=== PATIENT | female | born 1980 | race Hispanic/Latino ===

== ENCOUNTER 2018-07-04 16:41 | Emergency (ER) | payer BC, OTHER ==
[~2018-07-04 16:41] MED LIST: CELE200C PO; CETI10CA5 PO; MONT10TA24 PO
[2018-07-04] MEDS ORDERED: ONDANSETRON HCL 4 MG/2 ML VIAL ONE (17:14)
[2018-07-04] MEDS ORDERED: KETOROLAC TROMETHAMINE 30MG/ML ONE (17:15)
[2018-07-04 17:23] LABS: EOSINOPHILS % (AUTO) 3.3 % (0.0-8.0); HEMATOCRIT 37.7 % (36-48); LYMPHOCYTES % (AUTO) 29.9 % (21.0-51.0); MEAN CORPUSCULAR HEMOGLOBIN 28.9 pg (27.0-33.0); MEAN CORPUSCULAR HGB CONC 34.3 g/dL (32.0-36.0); MEAN CORPUSCULAR VOLUME 84.2 fL (79-99); MONOCYTES % (AUTO) 11.8 % (3.0-13.0); PLATELET COUNT (AUTO) 385 K/uL (130-400); RED BLOOD CELL COUNT(AUTO) 4.48 MIL/uL (4.00-5.50); RED CELL DISTRIBUTION WIDTH 14.1 % (11.0-15.5); WHITE BLOOD COUNT (AUTO) 8.1 K/uL (4.8-10.8)
[2018-07-04 17:28] LABS: APPEARANCE,URINE Clear (CLEAR); BILIRUBIN,URINE Negative (NEGATIVE); COLOR,URINE Dark Yellow (YELLOW); GLUCOSE, URINE (UA) Negative (NEGATIVE); KETONES,URINE Negative (NEGATIVE); LEUKOCYTE ESTERASE ,URINE Negative (NEGATIVE); NITRATE,URINE Negative (NEGATIVE); OCCULT BLOOD,URINE Negative (NEGATIVE); PH,URINE 6.5 (5.0-8.0); PROTEIN,URINE Negative (NEGATIVE)
[2018-07-04 17:31] LABS: HCG,QUAL RESULT NEGATIVE (NEGATIVE)
[2018-07-04 17:34] LABS: POTASSIUM 3.6 mmol/L (3.5-5.1)
== END 2018-07-04 18:41 | disposition home or self-care (01) ==
LOC: EDH 16:41
DX: N20.1 Calculus of ureter (principal); Z88.1 Allergy status to other antibiotic agents; Z90.49 Acquired absence of other specified parts of digestive tract; Z98.890 Other specified postprocedural states
CPT/HCPCS: 36415; 74176; 80048; 81003; 81025; 85025; 96374; 96375; 99285; J1885; J2405; 96376

== ENCOUNTER 2019-02-15 07:30 | Day surgery (SDC) | payer BC, OTHER ==
[2019-02-12 16:52] VITALS: BP 136/83
[2019-02-12 17:10] LABS: BASOPHILS % (AUTO) 0.6 % (0.0-5.0); EOSINOPHILS % (AUTO) 4.3 % (0.0-8.0); HEMATOCRIT 36.1 % (36-48); LYMPHOCYTES % (AUTO) 29.5 % (21.0-51.0); MEAN CORPUSCULAR HEMOGLOBIN 28.8 pg (27.0-33.0); MEAN CORPUSCULAR HGB CONC 32.1 g/dL (32.0-36.0); MEAN CORPUSCULAR VOLUME 89.6 fL (79-99); MONOCYTES % (AUTO) 9.7 % (3.0-13.0); NEUTROPHILS % (AUTO) 55.6 % (40.0-77.0); PLATELET COUNT (AUTO) 372 K/uL (130-400); RED BLOOD CELL COUNT(AUTO) 4.03 MIL/uL (4.00-5.50); RED CELL DISTRIBUTION WIDTH 13.1 % (11.0-15.5)
[2019-02-15] VITALS (21 sets, daily range): BP systolic 15–140; BP diastolic 42–86
[~2019-02-15] VITALS: Ht 170.2 cm; Wt 98.1 kg
[~2019-02-15 07:30] MED LIST changes: +CALDOLOR 800MG+NS 250ML 250 ML IV SCH; -CELE200C PO; +LACTATED RINGERS 1000ML 1,000 ML IV SCH
[2019-02-15] MEDS: CEFAZOLIN SODIUM 1 GM VIAL IVP SCH ×2 (08:00→09:35)
[2019-02-15] MEDS ORDERED: CALDOLOR 800MG+NS 250ML 250 ML IV ONE (08:00)
[2019-02-15] MEDS ORDERED: SUCCINYLCHOLINE 200MG/10ML SYR ONE (08:49)
[2019-02-15] MEDS ORDERED: LIDOCAINE PF 2% 5ML ABBOJECT ONE (08:49)
[2019-02-15] MEDS ORDERED: DEXAMETHASONE SOD PHOSPHATE 10MG/ML 1ML VIAL ONE (08:49)
[2019-02-15] MEDS ORDERED: MIDAZOLAM HCL 1 MG/ML 2ML VIAL ONE (08:49)
[2019-02-15] MEDS ORDERED: NEOSTIGMINE 5MG/5ML SYR IV ONE (08:50)
[2019-02-15] MEDS ORDERED: PROPOFOL 10 MG/ML 20ML VIAL IV ONE (08:50)
[2019-02-15] MEDS ORDERED: ONDANSETRON HCL 4 MG/2 ML VIAL ONE ×2 (08:50→10:34)
[2019-02-15] MEDS ORDERED: ROCURONIUM 10MG/1ML SYR 10 MG/ML ML ONE (08:50)
[2019-02-15] MEDS ORDERED: FENTANYL CITRATE PF 50 MCG/1 ML 2ML VIAL ONE (08:50)
[2019-02-15] MEDS ORDERED: OXYMETAZOLINE HCL SPRAY 15 ML BOTTLE ONE (08:53)
[2019-02-15] MEDS ORDERED: METOCLOPRAMIDE 10 MG/2 ML VIAL ONE (10:34)
[2019-02-15] MEDS ORDERED: EPINEPHRINE 1 MG/ML AMPULE ONE (11:06)
[2019-02-15] MEDS ORDERED: EPHEDRINE SULFATE 50 MG/ML AMPULE ONE (11:08)
== END 2019-02-15 12:30 | disposition home or self-care (01) ==
LOC: DAH 07:30
PROVIDERS: ATTEND Obstetrics & Gynecology
DX: N92.0 Excessive and frequent menstruation with regular cycle (principal); Z88.1 Allergy status to other antibiotic agents; Z88.2 Allergy status to sulfonamides; Z91.040 Latex allergy status; Z80.3 Family history of malignant neoplasm of breast
CPT/HCPCS: 36415; 58563; 84703; 85025; 86850; 86900; 86901; 88305; A4213; A4215; A4221; A4222; A4223; A4351; A4355; A4663; A6260; J0330; J0690; J1100; J1741; J2001; J2250; J2405 ×2; J2704; J2710; J2765; J3010; J3490; J7030; J7120; J0171